=== PATIENT | female | born 1950 | race Two or more races ===

== ENCOUNTER → 2016-09-24 | Outpatient (CLI) | payer MEDICARE ==
[~2016-09-24] MED LIST: ALBUTEROL17 GM INH; ARANESP25 MCG/ML IJ; ATIVAN INJ; HCTZ PO; MEDROL DOSEPAK4 MG PO; NIFEDICAL PO; NIFEDIPINE XR PO; PEGASYS180 MCG/M1 SQ; PREDNISONE PO; PREDNISONE1 MG; PRILOSEC PO; PROCARDIA XL PO; QVAR7.3 G1; TRIAMCINOLONE A15 G3 EXT; VISTARIL; XANAX0.5 MG PO
--- NOTE | ~2016-09-24 | CT4 ---
[facility] A Service of [facility] & [facility] RADIOLOGY TEXT RESULTS PATIENT: ROSALINA CORNEJO LOCATION: [facility] : 54 UNIT #: [id number] AGE: [address]: WESLEY ARORA APRN SEX: F ORDER DR: [id number] [facility] [address] [place], [place] [address] [id number] O MR#: [id number] Acc #: [id number] NAME: ROSALINA CORNEJO : 1950 SEX: F STUDY DATE/TIME: 09/24/2016 13:53 UNIT: [facility] ROOM: STUDY DESCRIPTION: CT Abd and Pelv Wo Cont Attending Physician: Wayne Arora M.D. Referring Physician: Wayne Arora M.D. Ordering Physician: Wayne Arora M.D. Primary Care Physician: Wayne Arora M.D. MEDICAL IMAGING REPORT This report is preliminary unless electronic signature is present EXAM CT of the abdomen and pelvis. DATE OF EXAM 09/24/2016 INDICATIONS Presacral mass. Restaging. COMPARISON CT of abdomen and pelvis dated 12/22/2015 and 12/09/2015. TECHNIQUE NOTE: This CT exam was performed with one or more of the following radiation dose reduction techniques: automatic exposure control, adjustment of mA and/or kV according to patient size, and iterative reconstruction. FINDINGS The liver is morphologically cirrhotic. The gallbladder is not distended. There is generalized atrophy of the pancreas. The spleen and adrenal glands are unchanged. There is a double-J ureteral stent in the right renal collecting system. No hydronephrosis. There is a 3 mm calculus adjacent to the ureteral stent in the left mid ureter. No left hydronephrosis. There is a small 3 mm nonobstructing left renal calculus. The bowel is not dilated. There is colonic diverticulosis. The appendix is normal. The abdominal aorta is normal in caliber. 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 No aggressive malignant appearance. There is no underlying osseous abnormalities. The lesion measures 2.6 x 1.5 x 2.5 cm. This previously measured 3 x 2.0 x 2.7 cm. [facility] A Service of [facility] RADIOLOGY TEXT RESULTS PATIENT: ROSALINA CORNEJO LOCATION: [facility] : 54 UNIT #: [id number] AGE: [address]: WESLEY ARORA [employer] ADJUSTER SEX: F ORDER DR: Uterus and ovaries are within normal limits. No enlarged pelvic or inguinal lymph nodes. No acute osseous abnormalities. IMPRESSION 1. Small cystic lesion along the anterior margin of the inferior coccyx is slightly smaller than on the prior study. This has a low internal attenuation of water and is probably a benign structure. This is stable to slightly decreased in size from 12/22/2015. An additional followup CT scan in 6-12 months would be recommended to confirm. 2. Cirrhosis of the liver. 3. Small 3 mm calculus in the mid ureter, adjacent to the double-J ureteral stent. No hydronephrosis. 4. Diverticulosis without diverticulitis. Dictated by... Reid Nuñez M.D. THIS IS AN ELECTRONICALLY VERIFIED REPORT Reid Nuñez M.D. at 09/24/2016 7:47 PM Danni TD: 09/24/2016 18:57 JOB #: [id number] MEDICAL IMAGING REPORT Page 1 of 1 COPY
== END | disposition home or self-care (01) ==
LOC: CCAT 12:43
DX: M53.3 Sacrococcygeal disorders, not elsewhere classified (principal); K74.60 Unspecified cirrhosis of liver; N20.1 Calculus of ureter; K57.90 Diverticulosis of intestine, part unspecified, without perforation or abscess without bleeding; Z96.0 Presence of urogenital implants
CPT/HCPCS: 74176

== ENCOUNTER → 2017-02-10 | Outpatient (CLI) | payer MEDICARE ==
--- NOTE | ~2017-02-10 | CT4 ---
[facility] A Service of [facility] & [facility] RADIOLOGY TEXT RESULTS PATIENT: ROSALINA CORNEJO LOCATION: [facility] : 54 UNIT #: [id number] AGE: [address]: Freddy Shirley MD SEX: F ORDER DR: [id number] [facility] [address] [place], [place] [address] [id number] O MR#: [id number] Acc #: [id number] NAME: ROSALINA CORNEJO : 1950 SEX: F STUDY DATE/TIME: 02/10/2017 14:51 UNIT: [facility] ROOM: STUDY DESCRIPTION: CT Abd and Pelv Wo Cont Attending Physician: Freddy Shirley M.D. Referring Physician: Freddy Shirley M.D. Ordering Physician: Freddy Shirley M.D. Primary Care Physician: Wayne Terry M.D. MEDICAL IMAGING REPORT This report is preliminary unless electronic signature is present EXAM CT of the abdomen and pelvis without contrast. INDICATION Lower abdominal pain for 1 year. COMPARISON STUDIES Comparison made to a prior exam from 09/24/16. TECHNIQUE Axial CT images were obtained from dome of the diaphragm through symphysis pubis. No intravenous contrast material was administered. This CT exam was performed with one or more of the following radiation dose reduction techniques: automatic exposure control, adjustment of mA and/or kV according to patient size, and iterative reconstruction. FINDINGS Patient has an 8 mm noncalcified pulmonary nodules seen at the right lung base, not definitively seen on prior studies. There is also some stable bibasilar scarring. There is a small hiatal hernia. The patient's liver is cirrhotic morphology, although I do not see a definite evidence of portal hypertension. This patient has a double-J ureteral stent which appears to be appropriately positioned, and I do not see any evidence of hydronephrosis. Patient has a 4 mm stent which is located within the mid right ureter, but again is not resulting in any obstruction. I do not really think its position has significant changed when compared to the exam from 09/24/2016. Nonobstructing stone is seen within the inferior pole of the left kidney. There is some mild STS. [facility] A Service of [facility] & [facility] RADIOLOGY TEXT RESULTS PATIENT: ROSALINA CORNEJO LOCATION: [facility] : 54 UNIT #: [id number] AGE: [address]: Freddy Shirley MD SEX: F ORDER DR: perivesical soft tissue stranding. Correlation with urinalysis and urine cultures is suggested. This certainly could reflect urinary tract infection. The left adrenal gland is bulky. Right adrenal gland appears unremarkable. Pancreas is atrophic. Gallbladder is relatively contracted but otherwise unremarkable. Proximal small bowel is within normal limits. Uterus appears normal. There is colonic diverticulosis without evidence of diverticulitis. I do not see any free fluid or adenopathy within the pelvis. Review of bony windows does not demonstrate any aggressive osseous abnormalities. IMPRESSION 1. The patient is again noted to have a right-sided double-J ureteral stent extending into the urinary bladder. There is a 4 mm stone within the mid right ureter adjacent to the stent without evidence of obstruction. I do not think its position really is significantly changed when compared to the exam from September of 2016. Patient is noted to have some perivesical stranding which could signify some underlying cystitis. Correlation with urinalysis and/or cultures is recommended. 2. Nonobstructing stone identified within the inferior pole of the left kidney. 3. An 8 mm nodule in the right lung base not definitively identified on prior studies, although it may have been obscured. Short-term followup CT in 3 months is recommended to document stability or resolution. 4. Cirrhotic morphology to the liver without definite evidence of portal hypertension. Please see the body report for any other additional incidental findings. Dictated by... Kelsi Henriquez M.D. THIS IS AN ELECTRONICALLY VERIFIED REPORT Kelsi Henriquez M.D. at 02/11/2017 4:55 PM AFF/ea TD: 02/11/2017 13:20 JOB #: [id number] MEDICAL IMAGING REPORT Page 1 of 1 COPY
== END | disposition home or self-care (01) ==
LOC: CCAT 02-06 14:00
DX: N39.0 Urinary tract infection, site not specified (principal); N20.2 Calculus of kidney with calculus of ureter; R91.1 Solitary pulmonary nodule
CPT/HCPCS: 74176